=== PATIENT | female | born 1950 ===

== ENCOUNTER 2018-01-08 13:29 | Observation (INO) | payer SELFPAY ==
--- NOTE | 2018-01-08 14:08 | ED PDOC ---
HPI:STROKE - Time Time: 14:06 - Historian Historian: Patient, Family - Chief Complaint Chief Complaint: other (dizziness) - Onset Date: 01/08/18 Time: 07:06 - Timing Timing: Currently Symptomatic - TPA Positive for Contraindication: Yes Reason tPA is not being Administered: out of window; woke up with symptoms; last known well yesterday evening - Notes: Notes:: Pt. woke up with dizziness like room spinning anad nausea/vomit nonbloody. Has mild left chest pain off and on with dyspnea. Swelling on left ankle, more then usual. No dysuria, freq urination, abd pain, neck pain, headaches. No numbness, tingles, weakness. Is from [facility] and has no pcp. NIHSS Stroke Scale - Date/Time Evaluation Performed Date Performed: 01/08/18 Time Performed: 14:08 When Was NIHSS Performed: Baseline - How Severe is the Stroke Level of Consciousness: 0=Alert LOC to Questions: 0=Both comments correct LOC to commands: 0=Obeys both correctly Best Gaze: 0=Normal Visual: 0=No visual loss Facial: 0=Normal Motor Arm - Left: 0=No drift Motor Arm - Right: 0=No drift Motor Leg - Left: 0=No drift Motor Leg - Right: 0=No drift Limb Ataxia: 0=Absent Sensory: 0=Normal Best Language: 0=No aphasia Dysarthia: 0=Normal articulation Extinction & Inattention (Neglect): 0=Normal, no object Score: 0 rTPA Inclusion/Exclusion - Refusal of Treatment Patient Refused Treatment: No - Inclusion Criteria for Altepase Patient is 18 years or Older: Yes The Clinical Diagnosis of Ischemic Stroke That is Causing a Potentially Disabling Neurological Deficit: No Time of Onset is Well Established to be Less Than 270 Minute Before Treatment Would Begin: No Risk/Benefit Discussed With Patient/Family Member Present: No Past Medical History Reviewed: Nursing Documentation, Vital Signs Vital Signs: Last Vital Signs Temp 98.3 F 01/08/18 13:47 Pulse 67 01/08/18 13:47 Resp 18 01/08/18 13:47 BP 141/71 01/08/18 13:47 Pulse Ox 99 01/08/18 13:47 - Medical History PMH: CAD, Diabetes, HTN - Surgical History Surgical History: No Surg Hx - Family History Family History: States: Unknown Family Hx - Living Arrangements Living Arrangements: With Family - Social History Alcohol: None Drugs: Denies - Home Medications Home Medications: Ambulatory Orders Medication Instructions Recorded Levothyroxine [Synthroid] 100 mcg PO DAILY 01/08/18 - Allergies Allergies/Adverse Reactions: Allergies Allergy/AdvReac Type Severity Reaction Status Date / Time No Known Allergies Allergy Verified 01/08/18 13:47 Review of Systems ROS Statement: Except As Marked, All Systems Reviewed And Found Negative Cardiovascular: Positive for: Chest Pain Respiratory: Positive for: Shortness of Breath Gastrointestinal: Positive for: Nausea, Vomiting Neurological: Positive for: Dizziness. Negative for: Weakness, Numbness, Headache Physical Exam - Reviewed Nursing Documentation Reviewed: Yes Vital Signs Reviewed: Yes - Physical Exam Appears: Positive for: Non-toxic, No Acute Distress Head Exam: Positive for: ATRAUMATIC, NORMAL INSPECTION, NORMOCEPHALIC Skin: Positive for: Normal Color, Warm, DRY Eye Exam: Positive for: Normal appearance, EOMI, PERRL. Negative for: Nystagmus , Periorbital swelling, Periorbital tenderness ENT: Positive for: Normal ENT Inspection Neck: Positive for: Normal, Painless ROM, Supple Cardiovascular/Chest: Positive for: Regular Rate, Rhythm Respiratory: Positive for: CNT, Normal Breath Sounds Gastrointestinal/Abdominal: Positive for: Normal Exam, Soft. Negative for: Tenderness Back: Positive for: Normal Inspection. Negative for: L CVA Tenderness, R CVA Tenderness Extremity: Positive for: Normal ROM, Other (left ankle with 1+ pitting edema). Negative for: Tenderness Neurologic/Psych: Positive for: Alert, assembler movement II-XII, Oriented. Negative for: Motor/Sensory Deficits, Aphasia, Facial Droop - Laboratory Results Result Diagrams: 01/08/18 15:00 01/08/18 15:00 Interpretation Of Abn Labs: 229 glucose - ECG ECG: Positive for: Interpreted By Me, Viewed By Me ECG Rhythm: Positive for: Right Bundle Branch Block O2 Sat by Pulse Oximetry: 99 Pulse Ox Interpretation: Normal - Radiology X-Ray: Interpreted by Me, Viewed By Me X-Ray Interpretation: No Acute Disease - CT Scan/US ct Other Rad Studies (CT/US): Read By Radiologist Other Rad Interpretation: no acute - Progress ED Course And Treament: 1628: Stable. AAOx3. Pain free. Has multiple risk factors including CAD. Will need eval for ACS. 1635: Spoke with Dr. Weller. Will admit tele obs. Disposition - Clinical Impression Clinical Impression: Chest pain, Dizziness - Patient ED Disposition Is Patient to be Admitted: Yes Counseled Patient/Family Regarding: Studies Performed, Diagnosis - Disposition Disposition Time: 16:36 Condition: FAIR - Pt Status Changed To: Hospital Disposition Of: Observation - POA Present On Arrival: Poor Glycemic Control
--- NOTE | 2018-01-08 14:52 | CT ---
PROCEDURE: CT HEAD WITHOUT CONTRAST. HISTORY: headache COMPARISON: None available. TECHNIQUE: Axial computed tomography images were obtained through the head/brain without intravenous contrast. Radiation dose: Total exam DLP = 770.01 mGy-cm. This CT exam was performed using one or more of the following dose reduction techniques: Automated exposure control, adjustment of the mA and/or kV according to patient size, and/or use of iterative reconstruction technique. FINDINGS: HEMORRHAGE: No intracranial hemorrhage. BRAIN: Good corticomedullary differentiation is seen. Minimal proportional, diffuse expansion of the ventriculosulcal and cisternal spaces is appreciated with trace white matter lucency compatible with diffuse cerebral atrophy and chronic microangiopathy. No suspicious extra-axial fluid collection is identified and the midline brain anatomy appears grossly nonfocal as imaged. There is no mass effect throughout. VENTRICLES: Unremarkable. No hydrocephalus. CALVARIUM: Unremarkable. PARANASAL SINUSES: Unremarkable as visualized. No significant inflammatory changes. MASTOID AIR CELLS: Unremarkable as visualized. No inflammatory changes. OTHER FINDINGS: None. IMPRESSION: Trace age-related degenerative findings are identified without acute CT changes appreciated as discussed above. Follow-up CT or MRI are available if clinically warranted.
[2018-01-08 15:05] LABS: BASO # 0.1 K/uL (0.0-0.2); BASO % 0.6 % (0.0-2.0); EOS # 0.2 K/uL (0.0-0.7); EOS % 1.6 % (0.0-4.0); HEMOGLOBIN 12.6 g/dL (12.0-16.0); LYMPH # 1.5 K/uL (1.0-4.3); LYMPH % 14.7 % (20.0-40.0); MEAN CELL VOLUME 88.2 fl (81.0-99.0); MEAN CORPUSCULAR HEMOGLOBIN 30.4 pg (27.0-31.0); MEAN CORPUSCULAR HGB CONC 34.5 g/dL (33.0-37.0); MEAN PLATELET VOLUME 9.5 fl (7.2-11.7); MONO # 0.5 K/uL (0.0-0.8); MONO % 4.7 % (0.0-10.0); NEUT # 8.2 K/uL (1.8-7.0); NEUT % 78.4 % (50.0-75.0); RBC 4.14 Mil/uL (3.80-5.20); RED CELL DISTRIBUTION WIDTH 14.3 % (11.5-14.5); WHITE BLOOD COUNT 10.5 K/uL (4.8-10.8)
[2018-01-08] MEDS: Sodium Chloride 0.9% 1,000 ML IV SCH (15:05)
[2018-01-08 15:16] LABS: ALBUMIN 3.9 g/dL (3.5-5.0); ALT/SGPT 28 U/L (9-52); AST/SGOT 22 U/L (14-36); BLOOD UREA NITROGEN 20 mg/dl (7-17); CALCIUM 8.8 mg/dL (8.4-10.2); GFR AFRICAN-AMERICAN > 60; GFR NON-AFRICAN AMERICAN > 60; HDL CHOLESTEROL 32 MG/DL (30-70)
[2018-01-08 15:21] LABS: PARTIAL THROMBOPLASTIN TIME 25.2 Seconds (25.6-37.1); PROTHROMBIN TIME 10.5 Seconds (9.8-13.1)
[2018-01-08 15:27] LABS: LDL CHOLESTEROL 116 mg/dL (0-129)
--- NOTE | 2018-01-08 16:38 | US ---
PROCEDURE: Bilateral lower extremity venous duplex Doppler. HISTORY: r/o dvt COMPARISON: None available. TECHNIQUE: Bilateral common femoral, superficial femoral, popliteal and posterior tibial veins were evaluated. Flow was assessed with color Doppler, compressibility, assessment of phasic flow and augmentation response. FINDINGS: COMMON FEMORAL VEIN: Right CFV: Unremarkable. Left CFV: Unremarkable. SUPERFICIAL FEMORAL VEIN: Right SFV: Unremarkable. Left SFV: Unremarkable. POPLITEAL VEIN: Right Popliteal: Unremarkable. Left Popliteal: Unremarkable. POSTERIOR TIBIAL VEIN: Right PTV: Unremarkable. Left PTV: Unremarkable. OTHER FINDINGS: None. IMPRESSION: No sonographic evidence of deep venous thrombosis bilateral lower extremities.
--- NOTE | 2018-01-08 17:15 | RAD ---
HISTORY: Code Stroke COMPARISON: No prior. FINDINGS: LUNGS: Limited patchy right infrahilar density is questioned with none at the left. PLEURA: No significant pleural effusion identified, no pneumothorax apparent. CARDIOVASCULAR: Prominent cardiac silhouette. Borderline pulmonary vascular congestion. OSSEOUS STRUCTURES: No significant abnormalities. VISUALIZED UPPER ABDOMEN: Normal. OTHER FINDINGS: None. IMPRESSION: Borderline CHF. Right infrahilar airspace disease may reflect atelectasis or infiltrate.
--- NOTE | 2018-01-08 17:28 | CP.PCM.HP ---
History of Present Illness - History of Present Illness History of Present Illness: 67 yo female with history of CAD, HTN, DM2 and Hypothyroidism just came in yesterday from [facility] brought by daughter because of on and off chest pain radiating to the left shoulder lasting for a few seconds since this morning. She claimed she had the same symptoms while she was in [facility] and her doctor told her that she has a block coronary. Accompanying symptoms were burping and swelling of both ankles. Present on Admission - Present on Admission Any Indicators Present on Admission: No History of DVT/PE: No History of Uncontrolled Diabetes: No Urinary Catheter: No Decubitus Ulcer Present: No Review of Systems - Review of Systems All systems: reviewed and no additional remarkable complaints except (aside from those mentioned above, 12 point system review were negative by me) Past Patient History - Tetanus Immunizations Tetanus Immunization: Unknown - Past Medical History & Family History Past Medical History?: Yes - Past Social History Smoking Status: Former Smoker Chewing Tobacco Use: No Cigar Use: No Alcohol: None Drugs: Denies Home Situation {Lives}: With Family (with daughter who claimed she would be staying for good) - CARDIAC Hx Hypertension: Yes - PULMONARY Hx Respiratory Disorders: No - NEUROLOGICAL Hx Neurological Disorder: No - HEENT Hx HEENT Problems: No - RENAL Hx Chronic Kidney Disease: No - ENDOCRINE/METABOLIC Hx Diabetes Mellitus Type 2: Yes - HEMATOLOGICAL/ONCOLOGICAL Hx Blood Disorders: No - INTEGUMENTARY Hx Dermatological Problems: No - MUSCULOSKELETAL/RHEUMATOLOGICAL Hx Musculoskeletal Disorders: No - GASTROINTESTINAL Hx Gastrointestinal Disorders: No - GENITOURINARY/GYNECOLOGICAL Hx Genitourinary Disorders: No - PSYCHIATRIC Hx Psychophysiologic Disorder: No Hx Substance Use: No - SURGICAL HISTORY Hx Surgeries: Yes Hx Section: Yes Hx Cholecystectomy: Yes Hx Hysterectomy: Yes (because of fibroid uteri) - ANESTHESIA Hx Anesthesia: Yes Hx Anesthesia Reactions: No Meds Allergies/Adverse Reactions: Allergies Allergy/AdvReac Type Severity Reaction Status Date / Time No Known Allergies Allergy Verified 01/08/18 13:47 Physical Exam - Constitutional Appears: No Acute Distress - Head Exam Head Exam: ATRAUMATIC - Eye Exam Eye Exam: absent: Scleral icterus - ENT Exam ENT Exam: Mucous Membranes Moist - Neck Exam Neck exam: Negative for: Meningismus - Respiratory Exam Respiratory Exam: absent: Rales, Rhonchi, Wheezes, Respiratory Distress - Cardiovascular Exam Cardiovascular Exam: REGULAR RHYTHM, +S1, +S2 - GI/Abdominal Exam GI & Abdominal Exam: Soft. absent: Tenderness - Rectal Exam Rectal Exam: Deferred - Extremities Exam Extremities exam: Positive for: pedal edema (1+ probably because of the long flight from [facility]). Negative for: calf tenderness - Back Exam Back exam: absent: tenderness - Neurological Exam Neurological exam: Alert, Oriented x3 - Psychiatric Exam Psychiatric exam: Normal Affect - Skin Skin Exam: Dry, Intact Results - Vital Signs Recent Vital Signs: Last Vital Signs Temp 96 F L 01/08/18 16:52 Pulse 66 01/08/18 16:52 Resp 18 01/08/18 16:52 BP 142/83 01/08/18 16:52 Pulse Ox 98 01/08/18 16:52 - Labs Result Diagrams: 01/08/18 15:00 01/08/18 15:00 Labs: Laboratory Results - last 24 hr 01/08/18 01/08/18 01/08/18 14:05 14:08 15:00 WBC 10.5 RBC 4.14 Hgb 12.6 Hct 36.5 MCV 88.2 MCH 30.4 MCHC 34.5 RDW 14.3 Plt Count 219 MPV 9.5 Neut % (Auto) 78.4 H Lymph % (Auto) 14.7 L Perry % (Auto) 4.7 Eos % (Auto) 1.6 Baso % (Auto) 0.6 Neut # (Auto) 8.2 H Lymph # (Auto) 1.5 Perry # (Auto) 0.5 Eos # (Auto) 0.2 Baso # (Auto) 0.1 PT INR APTT Sodium Potassium Chloride Carbon Dioxide Anion Gap BUN Creatinine Est GFR ( Amer) Est GFR (Non-Af Amer) POC Glucose (mg/dL) 219 H Random Glucose Calcium Total Bilirubin AST ALT Alkaline Phosphatase Troponin I Total Protein Albumin Globulin Albumin/Globulin Ratio Triglycerides Cholesterol LDL Cholesterol Direct HDL Cholesterol Blood Type AB POSITIVE Antibody Screen Negative BBK History Checked No verified bt 01/08/18 01/08/18 15:00 15:00 WBC RBC Hgb Hct MCV MCH MCHC RDW Plt Count MPV Neut % (Auto) Lymph % (Auto) Perry % (Auto) Eos % (Auto) Baso % (Auto) Neut # (Auto) Lymph # (Auto) Perry # (Auto) Eos # (Auto) Baso # (Auto) PT 10.5 INR 1.0 APTT 25.2 L Sodium 132 Potassium 3.8 Chloride 94 L Carbon Dioxide 28 Anion Gap 14 BUN 20 H Creatinine 0.6 L Est GFR ( Amer) > 60 Est GFR (Non-Af Amer) > 60 POC Glucose (mg/dL) Random Glucose 229 H Calcium 8.8 Total Bilirubin 1.0 AST 22 ALT 28 Alkaline Phosphatase 112 Troponin I < 0.0120 Total Protein 7.9 Albumin 3.9 Globulin 4.0 H Albumin/Globulin Ratio 1.0 Triglycerides 134 Cholesterol 188 LDL Cholesterol Direct 116 HDL Cholesterol 32 Blood Type Antibody Screen BBK History Checked Assessment & Plan - Assessment and Plan (Free Text) Assessment: 67 yo female with history of CAD, HTN, DM2 and Hypothyroidism just came in yesterday from [facility] brought by daughter because of on and off chest pain radiating to the left shoulder lasting for a few seconds since this morning. She claimed she had the same symptoms while she was in [facility] and her doctor told her that she has a block coronary. Accompanying symptoms were burping and swelling of both ankles. 1. Chest Pain serial Troponin and EKG NTG SL prn for chest pain Morphine 2mg IV q 4hrs prn for chest pain not relieved with above Lipid profile ASA 81mg PO daily Carvedilol 12.5mg PO q 12hrs 2. HTN has local home medication in [facility] but unsure of name on Carvedilol 3. Hypothyroidism TSH level continue Levothyroxine 4. DVT prophylaxis Lovenox 40mg SC daily
[2018-01-08] MEDS: Insulin Lispro (humaLOG) 100 Units/ml Inj SC SCH (22:50)
[2018-01-08 23:07] LABS: URINE BILIRUBIN NEGATIVE (NEGATIVE); URINE BLOOD NEGATIVE (NEGATIVE); URINE CLARITY CLEAR (Clear); URINE COLOR YELLOW (YELLOW); URINE GLUCOSE (UA) >=500 mg/dL (Normal); URINE PROTEIN NEGATIVE (NEGATIVE); URINE UROBILINOGEN 0.2-1.0 mg/dL (0.2-1.0)
[2018-01-08 23:08] LABS: SQUAMOUS EPITHIAL 1 /hpf (0-5); URINE BACTERIA RARE (<OCC); URINE LEUKOCYTE ESTERASE TRACE Leu/uL (Negative)
[2018-01-09] MEDS: Sodium Chloride 0.9% 1,000 ML IV SCH (00:30)
[2018-01-09] MEDS ORDERED: Pneumococcal 23-Valent Vaccine IM ONE (03:59)
[2018-01-09 06:22] VITALS: RESP 20
[2018-01-09 07:23] LABS: BLOOD UREA NITROGEN 13 mg/dl (7-17); CALCIUM 8.4 mg/dL (8.4-10.2); GFR AFRICAN-AMERICAN > 60; GFR NON-AFRICAN AMERICAN > 60
[2018-01-09 07:24] LABS: BASO # 0.1 K/uL (0.0-0.2); BASO % 0.7 % (0.0-2.0); EOS # 0.2 K/uL (0.0-0.7); EOS % 2.8 % (0.0-4.0); HEMOGLOBIN 11.6 g/dL (12.0-16.0); LYMPH # 2.2 K/uL (1.0-4.3); LYMPH % 25.9 % (20.0-40.0); MEAN CELL VOLUME 86.1 fl (81.0-99.0); MEAN CORPUSCULAR HEMOGLOBIN 30.1 pg (27.0-31.0); MEAN PLATELET VOLUME 9.8 fl (7.2-11.7); MONO # 0.6 K/uL (0.0-0.8); MONO % 6.9 % (0.0-10.0); NEUT # 5.5 K/uL (1.8-7.0); NEUT % 63.7 % (50.0-75.0); RBC 3.84 Mil/uL (3.80-5.20); RED CELL DISTRIBUTION WIDTH 14.5 % (11.5-14.5); WHITE BLOOD COUNT 8.6 K/uL (4.8-10.8)
[2018-01-09] MEDS ORDERED: Insulin NPH Human 100 Units/ml Inj SC SCH (07:30)
[2018-01-09] MEDS ORDERED: Potassium Chloride 20 mEq ER Tab PO ONE (07:31)
[2018-01-09] MEDS ORDERED: Pantoprazole 40 mg EC Tab PO SCH (09:00)
[2018-01-09] MEDS ORDERED: HCTZ/Losartan 12.5/50 Tab PO SCH (09:00)
[2018-01-09] MEDS ORDERED: Enoxaparin 40 mg Syringe SC SCH (09:00)
[2018-01-09] MEDS ORDERED: Levothyroxine 100 MCG TAB PO SCH (09:00)
[2018-01-09] MEDS: Insulin Lispro (humaLOG) 100 Units/ml Inj SC SCH ×2 (09:12→13:26)
--- NOTE | 2018-01-09 11:08 | CP.PCM.DIS ---
Provider - Provider Date of Admission: 01/08/18 16:37 Attending physician: Gaston Weller MD Primary care physician: None Time Spent in preparation of Discharge (in minutes): 15 Hospital Course - Lab Results Lab Results: Most Recent Lab Values WBC 8.6 K/uL (4.8-10.8) 01/09/18 07:00 RBC 3.84 Mil/uL (3.80-5.20) 01/09/18 07:00 Hgb 11.6 g/dL (12.0-16.0) L 01/09/18 07:00 Hct 33.0 % (34.0-47.0) L 01/09/18 07:00 MCV 86.1 fl (81.0-99.0) D 01/09/18 07:00 MCH 30.1 pg (27.0-31.0) 01/09/18 07:00 MCHC 35.0 g/dL (33.0-37.0) 01/09/18 07:00 RDW 14.5 % (11.5-14.5) 01/09/18 07:00 Plt Count 230 K/uL (130-400) 01/09/18 07:00 MPV 9.8 fl (7.2-11.7) 01/09/18 07:00 Neut % (Auto) 63.7 % (50.0-75.0) 01/09/18 07:00 Lymph % (Auto) 25.9 % (20.0-40.0) 01/09/18 07:00 Cassia % (Auto) 6.9 % (0.0-10.0) 01/09/18 07:00 Eos % (Auto) 2.8 % (0.0-4.0) 01/09/18 07:00 Baso % (Auto) 0.7 % (0.0-2.0) 01/09/18 07:00 Neut # (Auto) 5.5 K/uL (1.8-7.0) 01/09/18 07:00 Lymph # (Auto) 2.2 K/uL (1.0-4.3) 01/09/18 07:00 Cassia # (Auto) 0.6 K/uL (0.0-0.8) 01/09/18 07:00 Eos # (Auto) 0.2 K/uL (0.0-0.7) 01/09/18 07:00 Baso # (Auto) 0.1 K/uL (0.0-0.2) 01/09/18 07:00 PT 10.5 Seconds (9.8-13.1) 01/08/18 15:00 INR 1.0 (0.9-1.2) 01/08/18 15:00 APTT 25.2 Seconds (25.6-37.1) L 01/08/18 15:00 Sodium 136 mmol/l (132-148) 01/09/18 07:00 Potassium 3.3 MMOL/L (3.6-5.0) L 01/09/18 07:00 Chloride 97 mmol/L (98-107) L 01/09/18 07:00 Carbon Dioxide 33 mmol/L (22-30) H 01/09/18 07:00 Anion Gap 9 (10-20) L 01/09/18 07:00 BUN 13 mg/dl (7-17) 01/09/18 07:00 Creatinine 0.7 mg/dl (0.7-1.2) 01/09/18 07:00 Est GFR ( Amer) > 60 01/09/18 07:00 Est GFR (Non-Af Amer) > 60 01/09/18 07:00 POC Glucose (mg/dL) 171 mg/dL (65-110) H 01/09/18 05:02 Random Glucose 158 mg/dL (65-105) H 01/09/18 07:00 Calcium 8.4 mg/dL (8.4-10.2) 01/09/18 07:00 Total Bilirubin 1.0 mg/dl (0.2-1.3) 01/08/18 15:00 AST 22 U/L (14-36) 01/08/18 15:00 ALT 28 U/L (9-52) 01/08/18 15:00 Alkaline Phosphatase 112 U/L (38-126) 01/08/18 15:00 Troponin I < 0.0120 ng/mL (0.00-0.120) 01/09/18 07:49 NT-Pro-B Natriuret Pep 221 pg/ml (0-900) 01/08/18 18:13 Total Protein 7.9 G/DL (6.3-8.2) 01/08/18 15:00 Albumin 3.9 g/dL (3.5-5.0) 01/08/18 15:00 Globulin 4.0 gm/dL (2.2-3.9) H 01/08/18 15:00 Albumin/Globulin Ratio 1.0 (1.0-2.1) 01/08/18 15:00 Triglycerides 134 mg/DL (0-149) 01/08/18 15:00 Cholesterol 188 mg/dL (0-199) 01/08/18 15:00 LDL Cholesterol Direct 116 mg/dL (0-129) 01/08/18 15:00 HDL Cholesterol 32 MG/DL (30-70) 01/08/18 15:00 TSH 3rd Generation 4.26 mIU/ML (0.46-4.68) 01/09/18 07:00 Urine Color Yellow (YELLOW) 01/08/18 22:59 Urine Clarity Clear (Clear) 01/08/18 22:59 Urine pH 6.0 (5.0-8.0) 01/08/18 22:59 Ur Specific Blanchard 1.005 (1.003-1.030) 01/08/18 22:59 Urine Protein Negative mg/dL (NEGATIVE) 01/08/18 22:59 Urine Glucose (UA) >=500 mg/dL (Normal) 01/08/18 22:59 Urine Ketones Negative mg/dL (NEGATIVE) 01/08/18 22:59 Urine Blood Negative (NEGATIVE) 01/08/18 22:59 Urine Nitrate Negative (NEGATIVE) 01/08/18 22:59 Urine Bilirubin Negative (NEGATIVE) 01/08/18 22:59 Urine Urobilinogen 0.2-1.0 mg/dL (0.2-1.0) 01/08/18 22:59 Ur Leukocyte Esterase Trace Juan/uL (Negative) 01/08/18 22:59 Urine Microscopic WBC < 1 /hpf (0-5) 01/08/18 22:59 Ur Squamous Epith Cells 1 /hpf (0-5) 01/08/18 22:59 Urine Bacteria Rare (<OCC) 01/08/18 22:59 Blood Type AB POSITIVE 01/08/18 14:05 Blood Type Confirm AB POSITIVE 01/08/18 15:11 Antibody Screen Negative 01/08/18 14:05 BBK History Checked No verified bt 01/08/18 14:05 - Hospital Course Hospital Course: 67 yo female with history of CAD, HTN, DM2 and Hypothyroidism just came in yesterday from [facility](9 hour travel) brought by daughter because of feeling not well with generalized weakness with dizziness like room spinning and nausea/ vomit nonbloody. Has mild left chest pain off and on with dyspnea. Swelling on left ankle, more then usual. No dysuria, freq urination, abd pain, neck pain , headaches. No numbness, tingles, weakness. She claimed she had the same symptoms while she was in [facility] and her doctor told her that she has a blocked coronary. Accompanying symptoms were burping and swelling of both ankles. In ER her CT head showed no acute pathology and Doppler US Le showed no DVT She was placed under observation in telemetry for chest pain to rule out acute coronary syndrome. Troponins were cycled x 3 Q8 hours and were all negative and EKG did not show any acute ST-T wave changes.At present she is feeling better . Will discharge patient home. Resume all her home meds. [facility] as out patient . Follow up with a patient access associate. 1.Atypical Chest Pain serial Troponin x3 were negative EKG showed no ST-T wave changes 2. HTN chronic , controlled on Carvedilol 3. Hypothyroidism controlled continue Levothyroxine 4. IDDM continue home insulin regiments and diet Discharge Exam - Head Exam Head Exam: ATRAUMATIC, NORMOCEPHALIC - Eye Exam Eye Exam: EOMI, Normal appearance, PERRL Pupil Exam: NORMAL ACCOMODATION - ENT Exam ENT Exam: Mucous Membranes Moist, Normal Exam - Neck Exam Neck exam: Full Rom, Normal Inspection - Respiratory Exam Respiratory Exam: Clear to PA & Lateral, NORMAL BREATHING PATTERN. absent: Rhonchi, Wheezes - Cardiovascular Exam Cardiovascular Exam: REGULAR RHYTHM, RRR, +S1, +S2. absent: JVD - GI/Abdominal Exam GI & Abdominal Exam: Normal Bowel Sounds, Soft. absent: Distended, Guarding, Rebound, Tenderness - Rectal Exam Rectal Exam: Deferred - Extremities Exam Extremities exam: normal capillary refill, normal inspection, pedal pulses present - Neurological Exam Neurological exam: Alert, CN II-XII Intact, Oriented x3 - Psychiatric Exam Psychiatric exam: Anxious - Skin Skin Exam: Dry, Normal Color, Warm Discharge Plan - Follow Up Plan Condition: STABLE Disposition: HOME/ ROUTINE Patient education suggested?: Yes Additional Instructions: follow up with patient access associate
[2018-01-09 12:11] VITALS: BP 109/66; PULSE 76; TEMP 98.1; O2SAT 98
[2018-01-10] MEDS ORDERED: Potassium Chloride 20 mEq/15 ml LIQ UD PO ONE (09:16)
== END 2018-01-09 15:10 | disposition home or self-care (01) ==
LOC: H.ER 13:29 → H.ERHOLD 16:37 → H.TEL 18:35
DX: R07.89 Other chest pain (principal); E03.9 Hypothyroidism, unspecified; E11.9 Type 2 diabetes mellitus without complications; I10 Essential (primary) hypertension; I25.10 Atherosclerotic heart disease of native coronary artery without angina pectoris; Z79.4 Long term (current) use of insulin; Z79.82 Long term (current) use of aspirin; Z87.891 Personal history of nicotine dependence; Z90.49 Acquired absence of other specified parts of digestive tract; Z90.710 Acquired absence of both cervix and uterus; Z23 Encounter for immunization
CPT/HCPCS: 36415; 70450; 71045; 80048; 80053; 80061; 81003; 82948; 83036; 83880; 84443; 84484; 85025; 85610; 85730; 86850; 86900; 90732; 93970; 99285; G0009; G0378; J1650; J2405; J7030

== ENCOUNTER 2018-02-19 16:19 | Emergency (ER) | payer OTHER ==
[2018-02-19 16:27] VITALS: O2SAT 98
[2018-02-19 17:45] LABS: BASO # 0.1 K/uL (0.0-0.2); BASO % 0.6 % (0.0-2.0); EOS # 0.1 K/uL (0.0-0.7); EOS % 0.5 % (0.0-4.0); HEMOGLOBIN 12.5 g/dL (12.0-16.0); LYMPH # 1.5 K/uL (1.0-4.3); LYMPH % 12.2 % (20.0-40.0); MEAN CELL VOLUME 87.1 fl (81.0-99.0); MEAN CORPUSCULAR HEMOGLOBIN 29.2 pg (27.0-31.0); MEAN CORPUSCULAR HGB CONC 33.6 g/dL (33.0-37.0); MEAN PLATELET VOLUME 10.6 fl (7.2-11.7); MONO # 0.4 K/uL (0.0-0.8); MONO % 3.5 % (0.0-10.0); NEUT % 83.2 % (50.0-75.0); RBC 4.28 Mil/uL (3.80-5.20); RED CELL DISTRIBUTION WIDTH 14.1 % (11.5-14.5); WHITE BLOOD COUNT 12.1 K/uL (4.8-10.8)
[2018-02-19 17:51] LABS: CALCIUM 8.9 mg/dL (8.4-10.2); GFR AFRICAN-AMERICAN > 60; GFR NON-AFRICAN AMERICAN > 60
[2018-02-19 17:53] LABS: URINE BILIRUBIN NEGATIVE (NEGATIVE); URINE BLOOD NEGATIVE (NEGATIVE); URINE CLARITY CLOUDY (Clear); URINE COLOR YELLOW (YELLOW); URINE GLUCOSE (UA) 150 mg/dL (Normal); URINE LEUKOCYTE ESTERASE NEG Leu/uL (Negative); URINE PROTEIN 100 mg/dL (NEGATIVE); URINE UROBILINOGEN 0.2-1.0 mg/dL (0.2-1.0)
[2018-02-19 17:55] LABS: ALB/GLOB RATIO 1.1 (1.0-2.1); ALBUMIN 4.5 g/dL (3.5-5.0); ALT/SGPT 13 U/L (9-52); AST/SGOT 38 U/L (14-36); BLOOD UREA NITROGEN 15 mg/dl (7-17)
--- NOTE | 2018-02-19 18:05 | ED PDOC ---
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 states this morning when she woke up at 0700 she had "dizziness." States she had breakfast then took her HTN, cholesterol med, and DM meds. She then tried to go back to sleep but the "dizziness" worsened when she closed her eyes. describes dizzines as a of her going to lose balance and fall but she does not feel faint nor has she lost consciousness. As per her daughter she took the patient to the pharmacy to take her BP which was 190/92 and her BS was 182 which prompted them to go to the ED. Of note, pt. states she had the same exact feeling back in 12/2017 and was admitted into this hospital. States the only difference is that at that time she had chest pain but now she does not. Also reports she has had non-bloody vomiting and nausea. Denies hematemesis, headache, fever, abd pain, head injury, chest pain, SOB, palpitatons, weakness. Past Medical History Reviewed: Historical Data, Nursing Documentation, Vital Signs Vital Signs: Last Vital Signs Temp 98.5 F 02/19/18 19:13 Pulse 71 02/19/18 19:13 Resp 18 02/19/18 19:13 BP 155/84 H 02/19/18 19:13 Pulse Ox 98 02/20/18 12:10 - Medical History PMH: CAD, Diabetes, HTN, Hypercholesterolemia Denies: HIV, Chronic Kidney Disease - Surgical History Surgical History: Cholecystectomy - Family History Family History: States: No Known Family Hx - Home Medications Home Medications: Ambulatory Orders Medication Instructions Recorded Levothyroxine [Synthroid] 100 mcg PO DAILY 01/08/18 Meclizine HCl 1 - 2 tab PO Q6 PRN #15 tablet 02/19/18 - Allergies Allergies/Adverse Reactions: Allergies Allergy/AdvReac Type Severity Reaction Status Date / Time No Known Allergies Allergy Verified 01/08/18 13:47 Review of Systems ROS Statement: Except As Marked, All Systems Reviewed And Found Negative Neurological: Positive for: Dizziness Physical Exam - Physical Exam Appears: Positive for: Well, Non-toxic, No Acute Distress Skin: Positive for: Normal Color, Warm. Negative for: Rash Eye Exam: Positive for: Normal appearance, EOMI, PERRL. Negative for: Nystagmus ENT: Positive for: Normal ENT Inspection Neck: Positive for: Normal, Painless ROM Cardiovascular/Chest: Positive for: Regular Rate, Rhythm. Negative for: Tachycardia Respiratory: Positive for: Normal Breath Sounds. Negative for: Respiratory Distress Gastrointestinal/Abdominal: Positive for: Normal Exam, Soft. 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 Negative for: Aphasia, Facial Droop - Laboratory Results Result Diagrams: 02/19/18 17:30 02/19/18 17:30 - ECG ECG: Positive for: Interpreted By Me ECG Rhythm: Positive for: Sinus Rhythm. Negative for: ST/T Changes O2 Sat by Pulse Oximetry: 98 - Progress ED Course And Treament: Labs, zofran 4mg IV, antivert 50mg PO, EKG ordered. Pt. offered CT head w/o contrast but refused as she had a normal CT head w/o contrast during her last visit. Case d/w Dr. Sandra who agrees with care. 1839 As per RN pt. requesting for something to drink as she's thirsty. Tolerated PO fluids in ED. 1999 On re-evaluation, pt. reports feeling much better. Dizziness is still present but has improved. As per daughter had full meal in ED and immediately felt better afterwards. Advised to f/u with [facility] for further evaluation. Gait steady, unassisted. Disposition - Clinical Impression Clinical Impression: Dizziness - Patient ED Disposition Is Patient to be Admitted: No - Disposition Referrals: [facility] [Outside] Disposition: Routine/Home Disposition Time: 20:00 Condition: IMPROVED Additional Instructions: ASHWINI DENNEY, thank you for letting us take care of you today. Your provider was Keren Sandra MD and you were treated for POSS HIGH BLOOD PRESSURE. The emergency medical care you received today was directed at your acute symptoms. If you were prescribed any medication, please fill it and take as directed. It may take several days for your symptoms to resolve. Return to the Emergency Department if your symptoms worsen, do not improve, or if you have any other problems. Please contact your doctor or call one of the physicians/clinics you have been referred to that are listed on the Patient Visit Information form that is included in your discharge packet. Bring any paperwork you were given at discharge with you along with any medications you are taking to your follow up visit. Our treatment cannot replace ongoing medical care by a primary care provider outside of the emergency department. Thank you for allowing the [facility] team to be part of your care today. If you had an X-Ray or CT scan: A Radiologist will review the ED reading if any change in treatment is needed we will contact you. If you had a blood, urine, or wound culture: It will take several days for the results, if any change in treatment is needed we will contact you. If you had an STI test: It will take 48 hours for the results. Please call after 1 week if you have not heard back. Prescriptions: Meclizine HCl 1 - 2 tab PO Q6 PRN #15 tablet PRN Reason: Dizziness Instructions: Dizziness, Nonvertigo, (DC) Forms: [employer] (Georgian) Print Language: TURKMEN
[2018-02-19 19:14] VITALS: BP 155/84; PULSE 71; RESP 18; TEMP 98.5
--- NOTE | 2018-02-20 08:42 | CARD ---
APPROVED REPORT Date of service: 02/19/2018 <Conclusion> Normal sinus rhythm Right bundle branch block Abnormal ECG
== END 2018-02-19 20:37 | disposition home or self-care (01) ==
LOC: H.ER 16:19
DX: R42 Dizziness and giddiness (principal); E11.9 Type 2 diabetes mellitus without complications; E78.00 Pure hypercholesterolemia, unspecified; I10 Essential (primary) hypertension